=== PATIENT | female | born 1970 | race Hispanic/Latino ===

== ENCOUNTER 2021-10-08 14:11 | Emergency (ER) | payer SELFPAY ==
[2021-10-08 15:24] VITALS: BP 104/52
[2021-10-08 15:46] LABS: Basophils # (Auto) 0.1 K/mm3 (0.0-0.1); Eosinophils # (Auto) 0.1 K/mm3 (0.0-0.4); Eosinophils % (Auto) 1.7 % (0.0-4.3); Hematocrit 39.6 % (30.3-42.9); Hemoglobin 13.7 gm/dl (10.1-14.3); Lymphocytes # (Auto) 2.4 K/mm3 (1.2-5.4); Lymphocytes % (Auto) 35.1 % (13.4-35.0); Mean Corpuscular HGB Conc 35 % (30-34); Mean Corpuscular Volume 91 fl (79-97); Monocytes # (Auto) 0.5 K/mm3 (0.0-0.8); Monocytes % (Auto) 7.4 % (0.0-7.3); Platelet Count 233 K/mm3 (140-440); Red Blood Count 4.34 M/mm3 (3.65-5.03); Red Cell Distribution Width 13.5 % (13.2-15.2)
--- NOTE | 2021-10-08 16:01 | XRay Report ---
CHEST 2 VIEWS INDICATION / CLINICAL INFORMATION: SOB. COMPARISON: None available. FINDINGS: SUPPORT DEVICES: None. HEART / MEDIASTINUM: No significant abnormality. LUNGS / PLEURA: The lungs are prominently hyperinflated but otherwise grossly clear. No pneumothorax. ADDITIONAL FINDINGS: No significant additional findings. IMPRESSION: 1. COPD. No suggestion for acute superimposed disease. Signer Name: Flor Carter MD Signed: 10/08/2021 3:57 PM Workstation Name: [id number]
[2021-10-08 16:07] LABS: Calcium 9.1 mg/dL (8.4-10.2)
[2021-10-08 16:11] LABS: Alanine Aminotransferase 5 units/L (7-56); Albumin 4.4 g/dL (3.9-5)
[2021-10-08 16:21] LABS: Bilirubin,Direct < 0.2 mg/dL (0-0.2)
[2021-10-08 18:59] LABS: Bilirubin,Urine NEG (Negative); Blood,Urine NEG (Negative); Color,Urine Yellow (Yellow); Protein,Urine <15 mg/dL mg/dL (Negative); Urobilinogen,Urine < 2.0 mg/dL (<2.0)
[2021-10-08 19:05] LABS: Bacteria,Urine 1+ /HPF (Negative); Hyaline Casts,Urine 15 /LPF; Mucus,Urine FEW /HPF
== END 2021-10-09 04:43 ==
LOC: ED 14:11
DX: R10.9 Unspecified abdominal pain (principal); Z53.21 Procedure and treatment not carried out due to patient leaving prior to being seen by health care provider
CPT/HCPCS: 36415; 71046; 80048; 80076; 81001; 83690; 85025